=== PATIENT | female | born 1935 | race Caucasian/White ===

== ENCOUNTER 2016-09-10 06:37 | Emergency (ER) | payer MEDICARE, OTHER ==
[2016-09-10 06:13] LABS: BASOPHILS 0.3 %; BASOPHILS ABSOLUTE 0.02 10/3/uL (0.0-0.16); EOSINOPHILS 5.3 %; IMMATURE GRANULOCYTES 0.3 %; IMMATURE GRANULOCYTES ABSOLUTE 0.02 10/3/uL (0.0-0.11); LYMPHOCYTES 9.1 %; LYMPHOCYTES ABSOLUTE 0.68 10/3/uL (0.67-4.30); MEAN CORPUS HGB CONC 30.4 g/dL (32.0-36.0); MEAN CORPUSCULAR HEMOGLOB 30.4 pg (26.0-34.0); MEAN PLATELET VOLUME 10.6 fL (9.2-13.0); MONOCYTES 6.8 %; MONOCYTES ABSOLUTE 0.51 10/3/uL (0.21-1.20); NEUTROPHILS 78.2 %; NEUTROPHILS ABSOLUTE 5.87 10/3/uL (2.02-8.40); PLATELET COUNT 190 10/3/uL (150-400); RBC DISTRIBUTION WIDTH 18.1 % (12.0-16.0); RED CELL COUNT 3.52 10/6/uL (4.0-5.6); WHITE BLOOD CELLS 7.5 10/3/uL (4.5-10.5)
[2016-09-10 06:14] LABS: ER CBC TAT 0 Hrs 04 MinsNP; HEMATOCRIT 35.2 % (36.0-48.0); HEMOGLOBIN 10.7 g/dL (12.0-16.0); MANUAL DIFF NO %
[2016-09-10 06:21] LABS: INTERNATIONAL NORMAL RATI 1.2 UNITS (-); PARTIAL THROMBO TIME 29.9 SEC (22.5-37.2); PROTIME (NOT ORD) 15.3 SEC (12.0-14.5)
[2016-09-10 06:34] LABS: ALBUMIN 3.1 G/DL (3.5-5.0); ALKALINE PHOSPHATASE 154 U/L (45-117); BUN (BLOOD UREA NITROGEN) 65 MG/DL (6-23); CALCIUM, SERUM 9.6 MG/DL (8.5-10.4); CHEST PAIN PROFILE TAT 0 Hrs 25 Mins; CHLORIDE, SERUM 97 MMOL/L (96-112); CO2 (CARBON DIOXIDE) 32 MMOL/L (24-34); CREATININE 7.44 MG/DL (0.55-1.02); DIRECT BILIRUBIN 0.2 MG/DL (0.0-0.4); GFR AFRICAN AMERICAN 5 ML/MIN (>=60); GFR NON AFRICAN AMERICAN 5 ML/MIN (>=60); GLUCOSE, SERUM 88 MG/DL (60-99); INDIRECT BILIRUBIN(NOT ORDER) 0.3 MG/DL (0.1-0.9); POTASSIUM, SERUM 5.4 MMOL/L (3.5-5.3); SGPT(ALT) 20 U/L (5-65); SODIUM, SERUM 136 MMOL/L (135-148); TOTAL BILIRUBIN 0.5 MG/DL (0-1.2); TOTAL PROTEIN 7.9 G/DL (6.0-8.5); TROPONIN I 0.04 NG/ML (<0.05)
[2016-09-10 06:35] LABS: SGOT(AST) 11 U/L (5-40)
[~2016-09-10 06:37] MED LIST: ASAB PO; BETADINE 10% TOP; DUONEB INH; HALF81 PO; LIPITOR20 PO; MULTIPLE VIT PO; NORCO1 TA1 PO; NORCO1 TA2 PO; NOVOLOG SC; PLAVIX PO; PROAM25 PO; PROTONIX PO; RAN500 PO; RENAL SFTGLS1 MG PO; RENVELA800 MG PO; SENSIPAR30 M1 PO; SEVE800T PO; TESS PO; ULTRAM50 PO; VALTREX1 GM PO; VELPHORO 500 MG PO; VELPHORO PO; XALAT OPH
[2016-09-20] MEDS ORDERED: SYMBICORT 80/4.1 INH INH (15:18)
[2016-09-20] MEDS ORDERED: DOK250 MG PO (15:19)
[2016-09-20] MEDS ORDERED: TAMIFLU PO (15:21)
[2016-09-20] MEDS ORDERED: NORCO1 TA1 PO (15:22)
[2016-09-20] MEDS ORDERED: BETADINE 10% T (15:51)
[2016-09-20] MEDS ORDERED: BETADINE EX (15:52)
[2016-09-20] MEDS ORDERED: BACITRACIN T (15:54)
[2016-09-20] MEDS ORDERED: MAALOX MAX PO ×2 (15:55→15:56)
[2016-09-20] MEDS ORDERED: ONDANSETRON IM (15:57)
[2016-09-20] MEDS ORDERED: FLEETS ENEMA (15:59)
[2016-09-20] MEDS ORDERED: BEN25 PO (16:00)
[2017-01-02] MEDS ORDERED: BETADINE SOLUTIO4 OZ TOP (10:39)
[2017-01-02] MEDS ORDERED: AQUAPHOR (10:43)
[2017-01-02] MEDS ORDERED: BACTROINT TOP ×3 (10:45→10:50)
[2017-01-02] MEDS ORDERED: [UNRECOGNIZED DRUG - OTHER] TOP (10:47)
[2017-01-02] MEDS ORDERED: ALUMINUM HYDROXIDE PO (10:54)
[2017-01-02] MEDS ORDERED: MAGNESIUM HYDROXIDE PO (10:54)
[2017-01-02] MEDS ORDERED: SIMETHICONE PO (10:54)
[2017-01-02] MEDS ORDERED: ZOFRAN 4 MG/2 ML IM (10:55)
[2017-01-02] MEDS ORDERED: FLEETS ENEMA PR (10:57)
[2017-01-02] MEDS ORDERED: BANOPHEN25 MG PO (10:58)
[2017-01-02] MEDS ORDERED: [UNRECOGNIZED DRUG - OTHER] PO (11:02)
[2017-03-31] MEDS ORDERED: CLARIT10 PO (18:24)
[2017-03-31] MEDS ORDERED: CYANO1000T PO (18:25)
[2017-03-31] MEDS ORDERED: SENSIPAR30 M1 PO (18:26)
[2017-03-31] MEDS ORDERED: RENAL SFTGLS1 MG PO (18:29)
[2017-03-31] MEDS ORDERED: THERGRANM PO (18:29)
[2017-03-31] MEDS ORDERED: CORT-DOME 1% CR15 GM TOP (18:36)
[2017-03-31] MEDS ORDERED: SORE THROAT PO (18:42)
[2017-03-31] MEDS ORDERED: CHLORASEPTIC PO (18:43)
[2017-03-31] MEDS ORDERED: AQUAPHOR OINTMENT TOP (18:44)
[2017-03-31] MEDS ORDERED: DUONEB INH (18:45)
[2017-03-31] MEDS ORDERED: BETADINE SOLUTION TOP (18:47)
[2017-03-31] MEDS ORDERED: BEN25 PO (18:48)
[2017-03-31] MEDS ORDERED: MAALOX MAX PO (18:50)
[2017-04-08] MEDS ORDERED: VITAMIN B-121000 MC1 PO (07:18)
[2017-04-08] MEDS ORDERED: TOPXL50 PO (07:20)
[2017-04-08] MEDS ORDERED: TOPXL25 PO (07:22)
[2017-04-08] MEDS ORDERED: LIPITOR40 PO (07:22)
[2017-04-08] MEDS ORDERED: MAALOX PO (07:25)
== END 2016-09-10 08:25 | disposition home or self-care (01) ==
LOC: ER 06:37
PROVIDERS: Emergency Medicine
DX: I13.0 Hypertensive heart and chronic kidney disease with heart failure and stage 1 through stage 4 chronic kidney disease, or unspecified chronic kidney disease (principal); E11.22 Type 2 diabetes mellitus with diabetic chronic kidney disease; I50.9 Heart failure, unspecified; N18.9 Chronic kidney disease, unspecified; Z99.2 Dependence on renal dialysis; Z98.61 Coronary angioplasty status; Z91.013 Allergy to seafood; Z88.8 Allergy status to other drugs, medicaments and biological substances; Z91.09 Other allergy status, other than to drugs and biological substances; Z79.82 Long term (current) use of aspirin; Z79.899 Other long term (current) drug therapy
CPT/HCPCS: 71010; 80048; 80076; 83690; 83735; 84484; 85025; 85610; 85730; 93005; 99285; A9270-GY

== ENCOUNTER 2016-09-23 09:13 | Inpatient (IN) | payer MEDICARE, OTHER ==
--- NOTE | ~2016-09-23 | OP ---
Record Of Operation [facility] [address] [place]. [address] NAME: MIRYAM METZGER : 36 STATUS : DIS IN PAT#: [id number] AGE: 80 ADM/REG DATE : 09/23/16 MR#: [id number] REPORT SERV DATE: 09/27/16 DICTATED BY: ANURAG TAVERAS DATE: 09/27/16 REPORT STATUS : Draft TRANSCRIBED BY: LETICIA DATE: 09/27/16 DATE OF PROCEDURE: 09/23/2016 PREOPERATIVE DIAGNOSIS: Jonathan 6 chronic left lower extremity ischemia. POSTOPERATIVE DIAGNOSIS: Jonathan 6 chronic left lower extremity ischemia PROCEDURE: Left [id number]-rnl-edvk amputation. CAR DUMPER: Noah. ANESTHESIA: General. INDICATIONS: The patient is a 80-year-old female with a history of diabetes and end-stage renal disease as well as atherosclerosis of her left lower extremity with gangrene. She has severe ischemic rest pain along with her gangrene and wishes for palliative amputation. Risks, benefits, and alternatives were discussed. She agreed to proceed. DESCRIPTION OF PROCEDURE: After informed consent was obtained, the patient was taken to the operating room and placed in the supine position on the operating table. She was intubated and general anesthesia was administered. Her left lower extremity was prepped and draped in usual sterile fashion. I started off with a transverse skin incision about a handbreadth below the tibial tuberosity. Cautery was used to deepen the incision. I dissected out the tibia and the fibula. The periosteum was elevated. The bones were transected. The bone edges were beveled. The neurovascular bundles were suture ligated as I encounter them. The larger nerves were injected with local anesthetic before they were transected. The posterior flap was completed. I achieved hemostasis. I washed out the wound and closed in layers. The patient tolerated the procedure well without any intraprocedural complications noted. ALISSA/LETICIA Anurag Taveras M.D. / [id number] CC: Delaney Matias, MD
--- NOTE | ~2016-09-23 | DS ---
Discharge Summary [facility] [address] [place]. [address] NAME: MIRYAM METZGER : 36 STATUS : DIS IN PAT#: [id number] AGE: 80 ADM/REG DATE : 09/23/16 MR#: [id number] REPORT SERV DATE: 10/04/16 DICTATED BY: ANURAG TAVERAS DATE: 10/04/16 REPORT STATUS : Draft TRANSCRIBED BY: LETICIA DATE: 10/04/16 Data Collection from hospitalization DISCHARGE DIAGNOSES: 1. Lown[place] 6 chronic left lower extremity ischemia. 2. Hypertension. 3. Diabetes. 4. End-stage kidney disease. 5. Peripheral vascular disease. 6. Atrial fibrillation. 7. History of stroke. 8. Heart disease. CONSULTATIONS: Sergio Castaneda M.D. PROCEDURES PERFORMED: Left gtnpr-ypw-[id number] amputation on 09/23/2016. PATHOLOGY: Left lower extremity [id number]-lkn-[id number] amputation-severe peripheral vascular disease with distal gangrenous necrosis, skin, soft tissue, and bone margins are viable and free of inflammation. DISCHARGE MEDICATIONS: Halfprin 81 mg daily, Lipitor 20 mg at bedtime, Tessalon 100 mg three times a day, Plavix 75 mg daily, NovoLog injection insulin as instructed, Xalatan one drop at bedtime, multivitamins one tablet daily, Renal softgels 1 mg daily, Protonix 40 mg daily, Ranexa 500 mg daily, Renvela 1600 mg with meals, ProAmatine 2.5 mg three times a day, Symbicort 2 puffs via inhaler twice a day, DuoNeb inhaled solution one nebulized inhaler four times a day, Betadine 1 application topically daily as instructed, docusate sodium 250 mg twice a day, Tamiflu 75 mg as instructed, Toyah 5/325 one tablet 3 times a day as needed, Betadine 1 application topically daily as instructed, bacitracin 1 application topically twice a day as instructed, Maalox Max 15 mL every 2-4 hours as needed, ondansetron 4 mg IM every eight hours as needed, Fleet Enema as instructed, Benadryl 25 mg every four hours as needed. CONDITION ON DISCHARGE: Stable. DISPOSITION: The patient was discharged to [facility] on a renal- diabetic diet with activities as instructed. She would follow up with me three weeks following discharge. HOSPITAL COURSE: This is a 80-year-old female who has a history of diabetes and end-stage renal disease as well as atherosclerosis of the left lower extremity with gangrene. She has severe ischemic rest pain along with her gangrene and wishes for palliative amputation. Treatment options were discussed and it was elected to proceed with surgical intervention. She was admitted to the hospital at this time for further evaluation and treatment. Upon admission, she was taken to the operating room where she underwent the above-mentioned procedure. She tolerated this well and there were no complications. On postop day #1, her pain was controlled. The stump looked great. She continued to progress. Discharge Discharge Summary [address] [address] NAME: MIRYAM METZGER : 36 STATUS : DIS IN PAT#: [id number] AGE: 80 ADM/REG DATE : 09/23/16 MR#: [id number] REPORT SERV DATE: 10/04/16 DICTATED BY: ANURAG TAVERAS DATE: 10/04/16 REPORT STATUS : Draft TRANSCRIBED BY: LETICIA DATE: 10/04/16 planning was performed. On the , she was seen by Dr. Sergio Castaneda. Hemodialysis Therapy was being performed. She had no dyspnea. She had no edema. The patient does have end-stage renal disease. She was alert and cooperative. She had good pain control. Discharge instructions were given. Stump looked great. She had been evaluated by Physical Therapy. Due to her improved and stable condition, she was discharged to [facility] with this above-mentioned procedures. Information collected by: Raquel Malcolm I submit the above information as my discharge summary. KAROL/LETICIA Anurag Taveras M.D. / [id number] CC: Delaney Matias M.D. [facility]
[~2016-09-23 09:13] MED LIST changes: +BACITRACIN T; +BEN25 PO; +BETADINE 10% T; +BETADINE EX; +DOK250 MG PO; +FLEETS ENEMA; +MAALOX MAX PO; +ONDANSETRON IM; +SYMBICORT 80/4.1 INH INH; +TAMIFLU PO
[2016-09-23 10:36] LABS: HEMATOCRIT 35.3 % (36.0-48.0); HEMOGLOBIN 10.8 g/dL (12.0-16.0)
[2016-09-23 10:49] LABS: CALCIUM, SERUM 9.9 MG/DL (8.5-10.4); CHLORIDE, SERUM 100 MMOL/L (96-112); CO2 (CARBON DIOXIDE) 34 MMOL/L (24-34); GFR AFRICAN AMERICAN 7 ML/MIN (>=60); GFR NON AFRICAN AMERICAN 6 ML/MIN (>=60); GLUCOSE, SERUM 92 MG/DL (60-99); POTASSIUM, SERUM 4.9 MMOL/L (3.5-5.3); SODIUM, SERUM 139 MMOL/L (135-148)
[2016-09-23 10:50] LABS: BUN (BLOOD UREA NITROGEN) 38 MG/DL (6-23); CREATININE 5.89 MG/DL (0.55-1.02)
[2016-09-24 13:53] LABS: BASOPHILS 0.1 %; BASOPHILS ABSOLUTE 0.01 10/3/uL (0.0-0.16); EOSINOPHILS 1.2 %; EOSINOPHILS ABSOLUTE 0.14 10/3/uL (0.0-0.53); HEMOGLOBIN 9.2 g/dL (12.0-16.0); IMMATURE GRANULOCYTES 0.2 %; IMMATURE GRANULOCYTES ABSOLUTE 0.02 10/3/uL (0.0-0.11); LYMPHOCYTES 5.2 %; LYMPHOCYTES ABSOLUTE 0.61 10/3/uL (0.67-4.30); MEAN CORPUS HGB CONC 30.1 g/dL (32.0-36.0); MEAN CORPUSCULAR HEMOGLOB 28.8 pg (26.0-34.0); MEAN PLATELET VOLUME 11.1 fL (9.2-13.0); MONOCYTES 7.6 %; MONOCYTES ABSOLUTE 0.88 10/3/uL (0.21-1.20); NEUTROPHILS 85.7 %; NEUTROPHILS ABSOLUTE 9.96 10/3/uL (2.02-8.40); PLATELET COUNT 247 10/3/uL (150-400); RBC DISTRIBUTION WIDTH 17.6 % (12.0-16.0); RED CELL COUNT 3.19 10/6/uL (4.0-5.6)
[2016-09-24 13:54] LABS: HEMATOCRIT 30.6 % (36.0-48.0); MANUAL DIFF NO %; MEAN CORPUSCULAR VOLUME 95.9 fL (80-100); WHITE BLOOD CELLS 11.6 10/3/uL (4.5-10.5)
[2016-09-24 14:02] LABS: ALBUMIN 2.5 G/DL (3.5-5.0); BUN (BLOOD UREA NITROGEN) 53 MG/DL (6-23); CALCIUM, SERUM 9.3 MG/DL (8.5-10.4); CHLORIDE, SERUM 101 MMOL/L (96-112); CO2 (CARBON DIOXIDE) 29 MMOL/L (24-34); CREATININE 7.56 MG/DL (0.55-1.02); GFR AFRICAN AMERICAN 5 ML/MIN (>=60); GFR NON AFRICAN AMERICAN 5 ML/MIN (>=60); GLUCOSE, SERUM 105 MG/DL (60-99); PHOSPHORUS, SERUM 5.5 MG/DL (2.5-4.5); POTASSIUM, SERUM 5.5 MMOL/L (3.5-5.3); SODIUM, SERUM 140 MMOL/L (135-148)
[2016-09-25 19:12] LABS: BASOPHILS 0.1 %; BASOPHILS ABSOLUTE 0.01 10/3/uL (0.0-0.16); EOSINOPHILS 1.8 %; EOSINOPHILS ABSOLUTE 0.18 10/3/uL (0.0-0.53); HEMATOCRIT 30.7 % (36.0-48.0); HEMOGLOBIN 9.1 g/dL (12.0-16.0); IMMATURE GRANULOCYTES 0.3 %; IMMATURE GRANULOCYTES ABSOLUTE 0.03 10/3/uL (0.0-0.11); LYMPHOCYTES 6.5 %; LYMPHOCYTES ABSOLUTE 0.64 10/3/uL (0.67-4.30); MEAN CORPUS HGB CONC 29.6 g/dL (32.0-36.0); MEAN CORPUSCULAR HEMOGLOB 29.3 pg (26.0-34.0); MEAN CORPUSCULAR VOLUME 98.7 fL (80-100); MEAN PLATELET VOLUME 11.2 fL (9.2-13.0); MONOCYTES 8.6 %; MONOCYTES ABSOLUTE 0.85 10/3/uL (0.21-1.20); NEUTROPHILS 82.7 %; NEUTROPHILS ABSOLUTE 8.12 10/3/uL (2.02-8.40); PLATELET COUNT 204 10/3/uL (150-400); RBC DISTRIBUTION WIDTH 18.1 % (12.0-16.0); RED CELL COUNT 3.11 10/6/uL (4.0-5.6); WHITE BLOOD CELLS 9.8 10/3/uL (4.5-10.5)
[2016-09-25 19:13] LABS: MANUAL DIFF NO %
[2016-09-25 19:27] LABS: ALBUMIN 2.4 G/DL (3.5-5.0); CALCIUM, SERUM 9.4 MG/DL (8.5-10.4); CHLORIDE, SERUM 99 MMOL/L (96-112); CO2 (CARBON DIOXIDE) 30 MMOL/L (24-34); POTASSIUM, SERUM 5.5 MMOL/L (3.5-5.3); SODIUM, SERUM 136 MMOL/L (135-148)
[2016-09-25 19:28] LABS: BUN (BLOOD UREA NITROGEN) 38 MG/DL (6-23); CREATININE 5.83 MG/DL (0.55-1.02); GFR AFRICAN AMERICAN 7 ML/MIN (>=60); GFR NON AFRICAN AMERICAN 6 ML/MIN (>=60); GLUCOSE, SERUM 156 MG/DL (60-99)
[2016-09-26 08:56] LABS: BASOPHILS 0.1 %; BASOPHILS ABSOLUTE 0.01 10/3/uL (0.0-0.16); EOSINOPHILS 2.5 %; EOSINOPHILS ABSOLUTE 0.26 10/3/uL (0.0-0.53); HEMATOCRIT 28.4 % (36.0-48.0); HEMOGLOBIN 8.7 g/dL (12.0-16.0); IMMATURE GRANULOCYTES 0.2 %; IMMATURE GRANULOCYTES ABSOLUTE 0.02 10/3/uL (0.0-0.11); LYMPHOCYTES 11.9 %; LYMPHOCYTES ABSOLUTE 1.23 10/3/uL (0.67-4.30); MEAN CORPUS HGB CONC 30.6 g/dL (32.0-36.0); MEAN CORPUSCULAR HEMOGLOB 29.2 pg (26.0-34.0); MEAN CORPUSCULAR VOLUME 95.3 fL (80-100); MEAN PLATELET VOLUME 11.1 fL (9.2-13.0); MONOCYTES 6.2 %; MONOCYTES ABSOLUTE 0.64 10/3/uL (0.21-1.20); NEUTROPHILS 79.1 %; NEUTROPHILS ABSOLUTE 8.17 10/3/uL (2.02-8.40); PLATELET COUNT 218 10/3/uL (150-400); RBC DISTRIBUTION WIDTH 17.5 % (12.0-16.0); RED CELL COUNT 2.98 10/6/uL (4.0-5.6); WHITE BLOOD CELLS 10.3 10/3/uL (4.5-10.5)
[2016-09-26 08:57] LABS: MANUAL DIFF NO %
[2016-09-26 09:17] LABS: ALBUMIN 2.3 G/DL (3.5-5.0); BUN (BLOOD UREA NITROGEN) 47 MG/DL (6-23); CALCIUM, SERUM 9.2 MG/DL (8.5-10.4); CHLORIDE, SERUM 99 MMOL/L (96-112); CO2 (CARBON DIOXIDE) 30 MMOL/L (24-34); CREATININE 6.85 MG/DL (0.55-1.02); GFR AFRICAN AMERICAN 6 ML/MIN (>=60); GFR NON AFRICAN AMERICAN 5 ML/MIN (>=60); GLUCOSE, SERUM 108 MG/DL (60-99); PHOSPHORUS, SERUM 5.5 MG/DL (2.5-4.5); POTASSIUM, SERUM 5.2 MMOL/L (3.5-5.3); SODIUM, SERUM 138 MMOL/L (135-148)
[2017-01-02] MEDS ORDERED: BETADINE SOLUTIO4 OZ TOP (10:39)
[2017-01-02] MEDS ORDERED: AQUAPHOR (10:43)
[2017-01-02] MEDS ORDERED: BACTROINT TOP ×3 (10:45→10:50)
[2017-01-02] MEDS ORDERED: [UNRECOGNIZED DRUG - OTHER] TOP (10:47)
[2017-01-02] MEDS ORDERED: SIMETHICONE PO (10:54)
[2017-01-02] MEDS ORDERED: ALUMINUM HYDROXIDE PO (10:54)
[2017-01-02] MEDS ORDERED: MAGNESIUM HYDROXIDE PO (10:54)
[2017-01-02] MEDS ORDERED: ZOFRAN 4 MG/2 ML IM (10:55)
[2017-01-02] MEDS ORDERED: FLEETS ENEMA PR (10:57)
[2017-01-02] MEDS ORDERED: BANOPHEN25 MG PO (10:58)
[2017-01-02] MEDS ORDERED: [UNRECOGNIZED DRUG - OTHER] PO (11:02)
[2017-03-31] MEDS ORDERED: CLARIT10 PO (18:24)
[2017-03-31] MEDS ORDERED: CYANO1000T PO (18:25)
[2017-03-31] MEDS ORDERED: SENSIPAR30 M1 PO (18:26)
[2017-03-31] MEDS ORDERED: RENAL SFTGLS1 MG PO (18:29)
[2017-03-31] MEDS ORDERED: THERGRANM PO (18:29)
[2017-03-31] MEDS ORDERED: CORT-DOME 1% CR15 GM TOP (18:36)
[2017-03-31] MEDS ORDERED: SORE THROAT PO (18:42)
[2017-03-31] MEDS ORDERED: CHLORASEPTIC PO (18:43)
[2017-03-31] MEDS ORDERED: AQUAPHOR OINTMENT TOP (18:44)
[2017-03-31] MEDS ORDERED: DUONEB INH (18:45)
[2017-03-31] MEDS ORDERED: BETADINE SOLUTION TOP (18:47)
[2017-03-31] MEDS ORDERED: BEN25 PO (18:48)
[2017-03-31] MEDS ORDERED: MAALOX MAX PO (18:50)
[2017-04-08] MEDS ORDERED: VITAMIN B-121000 MC1 PO (07:18)
[2017-04-08] MEDS ORDERED: TOPXL50 PO (07:20)
[2017-04-08] MEDS ORDERED: LIPITOR40 PO (07:22)
[2017-04-08] MEDS ORDERED: TOPXL25 PO (07:22)
[2017-04-08] MEDS ORDERED: MAALOX PO (07:25)
== END 2016-09-26 17:08 | DRG 239 ==
LOC: SDC/OF 09:13 → PACU 18:07 → 2SO 20:00
PROVIDERS: Internal Medicine Nephrology; Registered Nurse; Surgery
PROC: 0Y6J0Z1 Detachment at Left Lower Leg, High, Open Approach (ICD-10-PCS; principal; 2016-09-23 10:45)
PROC: 5A1D60Z (ICD-10-PCS; 2016-09-26)
DX: E11.52 Type 2 diabetes mellitus with diabetic peripheral angiopathy with gangrene (principal); N18.6 End stage renal disease; I13.2 Hypertensive heart and chronic kidney disease with heart failure and with stage 5 chronic kidney disease, or end stage renal disease; E11.22 Type 2 diabetes mellitus with diabetic chronic kidney disease; I48.91 Unspecified atrial fibrillation; I69.354 Hemiplegia and hemiparesis following cerebral infarction affecting left non-dominant side; I70.262 Atherosclerosis of native arteries of extremities with gangrene, left leg; E78.00 Pure hypercholesterolemia, unspecified; I50.9 Heart failure, unspecified; J44.9 Chronic obstructive pulmonary disease, unspecified; K21.9 Gastro-esophageal reflux disease without esophagitis; H35.30 Unspecified macular degeneration; I25.10 Atherosclerotic heart disease of native coronary artery without angina pectoris; Z79.4 Long term (current) use of insulin; Z99.2 Dependence on renal dialysis; Z86.73 Personal history of transient ischemic attack (TIA), and cerebral infarction without residual deficits; Z79.01 Long term (current) use of anticoagulants
CPT/HCPCS: 80048; 80069; 82962; 83735; 85014; 85018; 85025; 88307; 88311; 93005; 94640; 97162-GP; A9270-GY; G0257; G8978-CM-GP; G8979-CL-GP; J0690; J2270; J2405; J3010

== ENCOUNTER 2016-10-29 14:46 | Observation (INO) | payer MEDICARE, OTHER ==
--- NOTE | ~2016-10-29 | HP ---
History And Physical [facility] [place]. [address] NAME: MIRYAM GODOY : 36 STATUS : ADM IN [facility]#: [id number] AGE: 80 ADM/REG DATE : 10/29/16 MR#: [id number] REPORT SERV DATE: 10/29/16 DICTATED BY: DATE: REPORT STATUS : Draft TRANSCRIBED BY: MODL DATE: 10/29/16 DATE OF ADMISSION: 10/29/2016 CHIEF COMPLAINT: Chest pain. HISTORY OF PRESENT ILLNESS: Ms. Godoy is a 80-year-old white female with a history of coronary artery disease, status post stent, peripheral vascular disease, status post left BKA, diabetes, hypertension, end-stage renal disease, atrial fibrillation, who presents to the hospital with chest pain. She went to her usual dialysis session at [facility] in [place], and after treatment was over, she was taken off. She was sitting and waiting on, the ambulance can pick her up to take her back to the [facility] where she lives. She developed midsternal chest pain, crushing, some shortness of breath with it. No nausea, no diaphoresis, and went to [facility], had a negative troponin. Given her symptoms, it was felt she needed admission so she was transferred here for further care. She does have a history of atrial fibrillation. Her heart rate was a little bit high in low 100s. Other labs are unremarkable but consistent with her end-stage renal disease. Chest pain is improved with nitroglycerin and aspirin. PAST MEDICAL HISTORY: End-stage renal disease, atrial fibrillation, diabetes, diabetic neuropathy, CHF with EF of 40, left BKA, hypertension, CVA, CHF, systolic and diastolic dysfunction, peripheral vascular disease, cholecystectomy, hysterectomy, and AV fistula. She has had angioplasty of the right tibial and femoral artery. ALLERGIES: AMLODIPINE, SHELLFISH, ADHESIVE TAPE, BACTRIM, AND NEOMYCIN. SOCIAL HISTORY: She lives at [facility]. No tobacco, alcohol, or illicit drug use. MEDICATIONS: Carnitor, hydrocodone, aspirin, atorvastatin, folic acid, Tessalon Perles, clindamycin, NovoLog, Xalatan, metoprolol, midodrine, nitroglycerin, Zofran, Protonix, Ranexa, and sevelamer. REVIEW OF SYSTEMS: A 12-point review of systems was obtained and negative with the exception that in the HPI. PHYSICAL EXAMINATION: VITAL SIGNS: Temperature 97.5, blood pressure 110/56, pulse 98, respiratory rate 18, and O2 saturation 100%. GENERAL: This is a pleasant, cooperative white female. She is awake, alert, and oriented, in no acute distress. Answers questions appropriately. HEENT: Normocephalic and atraumatic. Conjunctivae clear. Sclerae anicteric. Pupils are equal and round. Oral mucosa is moist. NECK: Supple. Carotids are brisk. Neck veins are flat. No lymphadenopathy. LUNGS: Respirations even and unlabored. Breath sounds clear to auscultation. HEART: Rate is regular. No murmur, rub, or gallop. ABDOMEN: Soft and nontender. Bowel sounds active. No masses. No hepatosplenomegaly. No bruits. No CVA tenderness. History And Physical [address] [address] NAME: MIRYAM GODOY : 36 STATUS : ADM IN [facility]#: [id number] AGE: 80 ADM/REG DATE : 10/29/16 MR#: [id number] REPORT SERV DATE: 10/29/16 DICTATED BY: DATE: REPORT STATUS : Draft TRANSCRIBED BY: MODL DATE: 10/29/16 BACK: Within normal limits. EXTREMITIES: No edema, cyanosis, or clubbing. SKIN: Warm, dry, and intact. No unusual rashes or skin lesions. NEUROLOGIC: Generalized weakness. No focal deficits. Mood and affect, pleasant appropriate. PERTINENT LABS AND X-RAYS: These are from [facility]. Sodium 137, potassium 3.9, chloride 100, CO2 of 37, BUN of 24, creatinine of 3.5, calcium 9.4. WBCs 7.3, H and H are 10 and 37, and platelets 208,000. Troponin 0.04. CK is negative. BNP was greater than 35,000. INR 1.1. LFTs are unremarkable. IMPRESSION: 1. Chest pain. 2. Coronary artery disease, status post stenting. 3. End-stage renal disease. 4. Peripheral vascular disease, status post left BKA. 5. History of atrial fibrillation. 6. History of congestive heart failure with diastolic and systolic dysfunction. PLAN/RECOMMENDATIONS: The patient is going to be admitted to monitored bed. Cardiac consult, telemetry. Next dialysis . Medicines will be continued as appropriate. Heparin drip per Cardiology recommendations. Further orders and recommendations pending clinical course. GIANFRANCO/LETICIA RICCARDO Almaraz / [id number] CC: Neal Guajardo Jr, M.D. UNKNOWN
--- NOTE | ~2016-10-29 | CN ---
Consultation Report [facility] [address] [place]. [address] NAME: MIRYAM METZGER : 37 STATUS : ADM IN [facility]#: [id number] AGE: 80 ADM/REG DATE : 10/29/16 MR#: [id number] REPORT SERV DATE: 10/30/16 DICTATED BY: ROBINA FARMER DATE: 10/29/16 REPORT STATUS : Draft TRANSCRIBED BY: LETICIA DATE: 10/29/16 CARDIOLOGY CONSULTATION NOTE DATE OF CONSULTATION: 10/29/2016 CHIEF COMPLAINT: Chest pain. REASON FOR CONSULTATION: Chest pain. SOURCE: Patient chart. HISTORY OF PRESENT ILLNESS: Ms. Metzger is a very pleasant 80-year-old white woman with history of extensive peripheral vascular disease as well as atrial fibrillation. She has end-stage renal disease and is on hemodialysis. She had just finished dialysis in [place] and was waiting on the ambulance this morning when she developed chest pain, described as something sitting on her chest, substernal, radiating to the back, 9/10 in severity, lasting minutes. It is pretty much gone now. She had associated diaphoresis and shortness of breath, but no nausea or vomiting. She has not had this before. She was admitted for further care, pain-free at present. REVIEW OF SYSTEMS: All other systems are negative. ALLERGIES: MULTIPLE INCLUDING SHELLFISH, ADHESIVE TAPE, NEOMYCIN, BACITRACIN, NITROFURANTOIN, AMLODIPINE, POLYMYXIN B, , AND UNKNOWN SEDATIVE. MEDICATIONS AT HOME: Include DuoNeb, aspirin, Lipitor, B complex with C and folic acid, benzonatate, Symbicort, clopidogrel, docusate, sodium hydrocodone, Xalatan, metoprolol, midodrine, multivitamins, Protonix, MiraLAX, Ranexa, and Renvela. CARDIAC RISK FACTORS: Include diabetes, hypertension, hyperlipidemia. Denies tobacco or family history. PAST MEDICAL HISTORY: Significant for coronary artery disease, status post angioplasty and stenting in [place] several years ago; congestive heart failure, "hole in her heart;" atrial fibrillation. She was seen by Dr. Craft in 04/2016. She has been on aspirin and Plavix presumably due to fall risk. She has had stroke; end-stage renal disease, on hemodialysis for 9 years on a Friday, , Friday schedule in [place]; peripheral artery disease, status post multiple procedures including recent left BKA 09/[address] Taveras; uterine cancer, status post hysterectomy in 1995, no chemo or x-ray therapy, reportedly in remission; status post gallbladder surgery; status post cataract surgery both eyes. SOCIAL HISTORY: The patient lives in [place]. She is . She has 5 children Consultation Report [address] [address] NAME: MIRYAM METZGER : 36 STATUS : ADM IN PAT#: [id number] AGE: 80 ADM/REG DATE : 10/29/16 MR#: [id number] REPORT SERV DATE: 10/30/16 DICTATED BY: ROBINA FARMER DATE: 10/29/16 REPORT STATUS : Draft TRANSCRIBED BY: LETICIA DATE: 10/29/16 who are alive and well, one has had kidney problems. She is retired. FAMILY HISTORY: Negative for coronary disease at young age. PHYSICAL EXAMINATION: GENERAL: She is a well-developed, well-nourished, elderly white woman, appearing chronically ill, in no acute distress. VITAL SIGNS: Blood pressure is 123/62, pulse 94, and temperature 98.2. HEENT: Sclerae anicteric. Lips without cyanosis. Carotids 2+ and symmetrical. Bilateral transmitted murmurs versus bruits. No JVD. No thyromegaly. LUNGS: Clear anteriorly. No use of accessory muscles. HEART: Regular rate and rhythm without murmur, gallop, or rub. ABDOMEN: Positive bowel sounds. Soft, nontender. EXTREMITIES: Dry gangrene on the right, status post toe amputations, diminished pulses, no edema. Left BKA. BACK: No CVA tenderness. MUSCULOSKELETAL: Diminished tone. NEURO: Alert and oriented x3. IMAGING: EKG reveals atrial fibrillation with rapid ventricular response. Rate 102 with occasional PVCs versus Ryan beats. LABORATORY EXAMINATION: Includes PTT of 48, troponin of 0.04, and glucose of 182. IMPRESSION: 1. Chest pain consistent with angina pectoris, now resolved. 2. History of coronary disease, status post angioplasty and stenting of unknown vessel in [place] several years ago. 3. Extensive peripheral artery disease, status post recent left BKA, evidence of dry gangrene on the right. 4. End-stage renal disease, on hemodialysis, on a Friday, , Friday schedule. 5. Chronic atrial fibrillation. 6. Reported fall risk, on aspirin and Plavix. 7. Cardiac risk factors including diabetes, hypertension, and hyperlipidemia. 8. Status post stroke. 9. History of uterine cancer. 10.History of congestive heart failure with LVEF of 45%, aortic and mitral sclerosis in 08/2015. 11.Reported hole in the heart. RECOMMENDATIONS: 1. Aspirin, nitrates, and heparin. 2. Empiric statin therapy. 3. Beta blockers. 4. Check serial EKGs and enzymes. Consultation Report [address] [place]. [address] NAME: MIRYAM METZGER : 37 STATUS : ADM IN [facility]#: [id number] AGE: 80 ADM/REG DATE : 10/29/16 MR#: [id number] REPORT SERV DATE: 10/30/16 DICTATED BY: ROBINA FARMER DATE: 10/29/16 REPORT STATUS : Draft TRANSCRIBED BY: LETICIA DATE: 10/29/16 5. Consider thallium stress test if her enzymes are negative. 6. Even if she has an abnormal thallium stress test or abnormal cardiac enzymes, she is not clearly an invasive candidate. She understands this, and we can discuss further the risks, benefits, and complications of invasive evaluation and treatment should she have abnormal enzymes or abnormal stress test. 7. Medical therapy for now. See orders as per Supriya Hawkins. DIDIER/LETICIA Robina Farmer M.D. / [id number] CC: Neal Guajardo Jr, M.D.
[2016-10-29] MEDS ORDERED: RAN500 PO (16:26)
[2016-10-29] MEDS ORDERED: HALF81 PO (16:27)
[2016-10-29] MEDS ORDERED: LIPITOR20 PO (16:27)
[2016-10-29] MEDS ORDERED: TESS PO (16:27)
[2016-10-29] MEDS ORDERED: XALAT OPH (16:28)
[2016-10-29] MEDS ORDERED: RENAL SFTGLS1 MG PO (16:28)
[2016-10-29] MEDS ORDERED: PROAM25 PO (16:29)
[2016-10-29] MEDS ORDERED: PROTONIX PO (16:29)
[2016-10-29] MEDS ORDERED: RENVELA800 MG PO (16:30)
[2016-10-29] MEDS ORDERED: DUONEB INH (16:31)
[2016-10-29] MEDS ORDERED: MULTIVITAMI1 PO (16:31)
[2016-10-29] MEDS ORDERED: LOP25 PO (16:32)
[2016-10-29] MEDS ORDERED: SYMBICORT 80/4.1 INH INH (16:33)
[2016-10-29] MEDS ORDERED: DOK250 MG PO (16:33)
[2016-10-29] MEDS ORDERED: PLAVIX PO (16:33)
[2016-10-29] MEDS ORDERED: MIRALAX POWDER1 PKT PO (16:34)
[2016-10-29] MEDS ORDERED: NORCO1 TA2 PO (16:35)
[2016-10-29 17:59] LABS: TROPONIN I 0.04 NG/ML (<0.05)
[2016-10-29 21:03] LABS: CPK 29 U/L (0-200)
[2016-10-30 00:20] LABS: CPK 18 U/L (0-200); TROPONIN I 0.04 NG/ML (<0.05)
[2016-10-30 00:23] LABS: CK-MB 1.3 NG/ML
[2016-10-30 08:15] LABS: BASOPHILS 0.4 %; BASOPHILS ABSOLUTE 0.03 10/3/uL (0.0-0.16); EOSINOPHILS 4.4 %; EOSINOPHILS ABSOLUTE 0.32 10/3/uL (0.0-0.53); IMMATURE GRANULOCYTES 0.3 %; IMMATURE GRANULOCYTES ABSOLUTE 0.02 10/3/uL (0.0-0.11); LYMPHOCYTES 14.4 %; LYMPHOCYTES ABSOLUTE 1.05 10/3/uL (0.67-4.30); MEAN CORPUS HGB CONC 29.8 g/dL (32.0-36.0); MEAN CORPUSCULAR HEMOGLOB 29.2 pg (26.0-34.0); MEAN PLATELET VOLUME 10.9 fL (9.2-13.0); MONOCYTES 7.8 %; MONOCYTES ABSOLUTE 0.57 10/3/uL (0.21-1.20); NEUTROPHILS 72.7 %; PLATELET COUNT 224 10/3/uL (150-400); RBC DISTRIBUTION WIDTH 18.4 % (12.0-16.0); RED CELL COUNT 3.43 10/6/uL (4.0-5.6); WHITE BLOOD CELLS 7.3 10/3/uL (4.5-10.5)
[2016-10-30 08:16] LABS: HEMATOCRIT 33.6 % (36.0-48.0); MANUAL DIFF NO %
[2016-10-30 08:30] LABS: ALBUMIN 2.4 G/DL (3.5-5.0); CALCIUM, SERUM 9.7 MG/DL (8.5-10.4); CHLORIDE, SERUM 104 MMOL/L (96-112); CO2 (CARBON DIOXIDE) 30 MMOL/L (24-34); CPK 17 U/L (0-200); POTASSIUM, SERUM 4.8 MMOL/L (3.5-5.3); SODIUM, SERUM 141 MMOL/L (135-148)
[2016-10-30 08:31] LABS: BUN (BLOOD UREA NITROGEN) 37 MG/DL (6-23); GFR AFRICAN AMERICAN 9 ML/MIN (>=60); GFR NON AFRICAN AMERICAN 8 ML/MIN (>=60)
[2016-10-30 08:32] LABS: CK-MB 0.9 NG/ML; GLUCOSE, SERUM 85 MG/DL (60-99); PHOSPHORUS, SERUM 4.2 MG/DL (2.5-4.5)
[2017-01-02] MEDS ORDERED: BETADINE SOLUTIO4 OZ TOP (10:39)
[2017-01-02] MEDS ORDERED: AQUAPHOR (10:43)
[2017-01-02] MEDS ORDERED: BACTROINT TOP ×3 (10:45→10:50)
[2017-01-02] MEDS ORDERED: [UNRECOGNIZED DRUG - OTHER] TOP (10:47)
[2017-01-02] MEDS ORDERED: MAGNESIUM HYDROXIDE PO (10:54)
[2017-01-02] MEDS ORDERED: SIMETHICONE PO (10:54)
[2017-01-02] MEDS ORDERED: ALUMINUM HYDROXIDE PO (10:54)
[2017-01-02] MEDS ORDERED: ZOFRAN 4 MG/2 ML IM (10:55)
[2017-01-02] MEDS ORDERED: FLEETS ENEMA PR (10:57)
[2017-01-02] MEDS ORDERED: BANOPHEN25 MG PO (10:58)
[2017-01-02] MEDS ORDERED: [UNRECOGNIZED DRUG - OTHER] PO (11:02)
[2017-03-31] MEDS ORDERED: CLARIT10 PO (18:24)
[2017-03-31] MEDS ORDERED: CYANO1000T PO (18:25)
[2017-03-31] MEDS ORDERED: SENSIPAR30 M1 PO (18:26)
[2017-03-31] MEDS ORDERED: RENAL SFTGLS1 MG PO (18:29)
[2017-03-31] MEDS ORDERED: THERGRANM PO (18:29)
[2017-03-31] MEDS ORDERED: CORT-DOME 1% CR15 GM TOP (18:36)
[2017-03-31] MEDS ORDERED: SORE THROAT PO (18:42)
[2017-03-31] MEDS ORDERED: CHLORASEPTIC PO (18:43)
[2017-03-31] MEDS ORDERED: AQUAPHOR OINTMENT TOP (18:44)
[2017-03-31] MEDS ORDERED: DUONEB INH (18:45)
[2017-03-31] MEDS ORDERED: BETADINE SOLUTION TOP (18:47)
[2017-03-31] MEDS ORDERED: BEN25 PO (18:48)
[2017-03-31] MEDS ORDERED: MAALOX MAX PO (18:50)
[2017-04-08] MEDS ORDERED: VITAMIN B-121000 MC1 PO (07:18)
[2017-04-08] MEDS ORDERED: TOPXL50 PO (07:20)
[2017-04-08] MEDS ORDERED: TOPXL25 PO (07:22)
[2017-04-08] MEDS ORDERED: LIPITOR40 PO (07:22)
[2017-04-08] MEDS ORDERED: MAALOX PO (07:25)
== END 2016-10-30 18:03 ==
LOC: 2SO 14:46
PROVIDERS: Internal Medicine Nephrology; Nurse Practitioner; Nurse Practitioner Family
DX: R07.9 Chest pain, unspecified (principal); I25.10 Atherosclerotic heart disease of native coronary artery without angina pectoris; I73.9 Peripheral vascular disease, unspecified; I48.2 Chronic atrial fibrillation; I13.2 Hypertensive heart and chronic kidney disease with heart failure and with stage 5 chronic kidney disease, or end stage renal disease; E11.22 Type 2 diabetes mellitus with diabetic chronic kidney disease; N18.6 End stage renal disease; I50.40 Unspecified combined systolic (congestive) and diastolic (congestive) heart failure; E11.40 Type 2 diabetes mellitus with diabetic neuropathy, unspecified; I05.8 Other rheumatic mitral valve diseases; Z86.73 Personal history of transient ischemic attack (TIA), and cerebral infarction without residual deficits; Z90.49 Acquired absence of other specified parts of digestive tract; Z90.710 Acquired absence of both cervix and uterus; Z98.890 Other specified postprocedural states; Z88.5 Allergy status to narcotic agent; Z99.2 Dependence on renal dialysis; Z91.013 Allergy to seafood; Z88.1 Allergy status to other antibiotic agents; Z88.8 Allergy status to other drugs, medicaments and biological substances; Z95.5 Presence of coronary angioplasty implant and graft
CPT/HCPCS: 71010; 78451; 78452; 80069; 82550; 82553; 82962; 84484; 85025; 85730; 93005; 93017; 94640; 96372; A9270-GY; A9502; G0378; J0153